=== PATIENT | female | born 1995 | race African-American/Black ===

== ENCOUNTER 2019-04-02 14:15 | Observation (INO) | payer MEDICAID ==
[~2019-04-02 14:15] MED LIST: ALBU1.257 NEB; PREN-153 OR
[2019-04-02 16:09] LABS: Amphetamine Screen, Urine NEGATIVE (NEGATIVE); Cannabinoid Screen, Urine POSITIVE (NEGATIVE)
[2019-04-02 16:17] LABS: Alcohol, Urine < 3.0 mg/dL (0-5); Barbiturate Scree,Urine NEGATIVE (NEGATIVE); Benzodiazephine Screen, Urine NEGATIVE (NEGATIVE); Cocaine Screen, Urine NEGATIVE (NEGATIVE); Opiate Scree,Urine NEGATIVE (NEGATIVE); Phencyclidine Screen, Urine NEGATIVE (NEGATIVE)
== END 2019-04-02 16:55 | disposition home or self-care (01) | DRG 566 ==
LOC: LDRP 14:15
PROVIDERS: ADMIT Specialist; ATTEND Specialist
DX: O46.92 Antepartum hemorrhage, unspecified, second trimester (principal); O62.9 Abnormality of forces of labor, unspecified; Z3A.22 22 weeks gestation of pregnancy
CPT/HCPCS: 59025; 76815; 80307; 81002; G0378; 96361

== ENCOUNTER 2020-05-15 10:04 | Observation (INO) | payer MEDICAID ==
[2020-05-15] MEDS ORDERED: LACTATED RINGER'S 1,000 ML IV ONE (12:00)
[2020-05-15 12:13] LABS: Urine Amorphous Crystal FEW /hpf (None Seen); Urine Bacteria FEW /hpf (None Seen); Urine Blood Negative /uL (Negative); Urine Mucus FEW (None Seen); Urine Specific Gravity 1.026 (1.001-1.035); Urine WBC 2 /hpf (0 - 5)
[2020-05-15 13:21] LABS: Amphetamine Screen, Urine NEGATIVE (NEGATIVE); Barbiturate Scree,Urine NEGATIVE (NEGATIVE); Benzodiazephine Screen, Urine NEGATIVE (NEGATIVE); Opiate Scree,Urine NEGATIVE (NEGATIVE); Phencyclidine Screen, Urine NEGATIVE (NEGATIVE)
[2020-05-15 13:22] LABS: Cannabinoid Screen, Urine POSITIVE (NEGATIVE); Cocaine Screen, Urine NEGATIVE (NEGATIVE)
== END 2020-05-15 15:20 | disposition home or self-care (01) ==
LOC: LDRP 10:04
PROVIDERS: ADMIT Obstetrics & Gynecology; ATTEND Obstetrics & Gynecology
DX: O98.512 Other viral diseases complicating pregnancy, second trimester (principal); U07.1 COVID-19; O26.892 Other specified pregnancy related conditions, second trimester; R10.2 Pelvic and perineal pain; O30.042 Twin pregnancy, dichorionic/diamniotic, second trimester; O46.92 Antepartum hemorrhage, unspecified, second trimester; O99.322 Drug use complicating pregnancy, second trimester; F12.90 Cannabis use, unspecified, uncomplicated; Z3A.24 24 weeks gestation of pregnancy
CPT/HCPCS: 36415; 59025; 76805; 80307; 81001; 81002; 87426; 96360; 96361; G0378; U0003